=== PATIENT | male | born 2000 | race Caucasian/White ===

== ENCOUNTER 2024-11-07 08:19 | Outpatient (CLI) | payer BC, SELFPAY | END 2024-11-07 08:20 | disposition home or self-care (01) | LOC: AMB 11-22 11:59 | PROVIDERS: PCP Nurse Practitioner Psychiatric/Mental Health; Visit Provider Family Medicine | DX: F91.9 Conduct disorder, unspecified (principal); R00.0 Tachycardia, unspecified | CPT/HCPCS: A0425; A0427 ==

== ENCOUNTER 2024-11-07 08:43 | Emergency (ER) | payer BC, SELFPAY ==
--- OUTSIDE RECORDS SUMMARY | 2024-11-07 08:46 | XMS_ITS | Patient Health Record ---
Author Organization [facility] Address [address] [place] [address] [place] [address] Care Team Providers Care Candy Dipper Hand Name Role Phone RaquelDashawnen Unavailable [phone] Yadira Sykes Unavailable [phone] REASON FOR REFERRAL No Information MEDICATIONS Medication SIG (Take, Route, Frequency, Duration) Notes Start Date End Date Status Ciprofloxacin-dexAMETHason e 0.3-0.1 % 4 drops into affected ear Otic Twice a day for 7 days 07/06/2024 Active VITAL SIGNS Heart Rate 72 /min 07/06/2024 Temperature 98.3 degrees Fahrenheit 07/06/2024 Oximetry 99 % 07/06/2024 Blood pressure diastolic 78 mm Hg 07/06/2024 Height 5 ft 11 in in 07/06/2024 Blood pressure systolic 129 mm Hg 07/06/2024 Weight 150 lbs 07/06/2024 BMI 20.92 kg/m2 07/06/2024 Encounters Encounter Location Date Provider Diagnosis [facility] [address] [place] [address] 07/06/2024 Maryse García Acute otitis externa of right ear, unspecified type H60.501 [facility] [address] [place] [address] 07/09/2024 Yadira Sykes ASSESSMENTS Encounter Date Diagnosis Assessment Notes Treatment Notes Treatment Clinical Notes Section Notes 07/06/2024 Acute otitis externa of right ear, unspecified type (ICD-10 - H60.501) Take ear drops as prescribed. Continue ibuprofen prn for pain. Can use ice for pain relief. Keep ears clean and dry. RTC if SWOP or f/u with PCP ER precautions PLAN OF TREATMENT No Information Insurance Providers Payer Name Payer Address Payer Phone Subscriber Number Group Number Insured Name Patient Relationship to Insured Coverage Start Date Coverage End Date [facility] [address] [address] [place] [address] [id number] Harinder Bravo Self - patient is the insured MEDICAL (GENERAL) HISTORY Medical History History ICD Code Asthma Surgical History Surgery Date(Month/Year)
[2024-11-07 08:49] VITALS: BP 155/110; PULSE 110; RESP 20; TEMP 36.6; O2SAT 96
--- NOTE | 2024-11-07 09:15 | ED.PSYCH ---
HPI - Psych General Time Seen by Provider: 09:15 <Adriana Mayberry MD - Last Filed: 11/07/24 23:39> Date Seen: 11/07/24 <Adriana Mayberry MD - Last Filed: 11/07/24 23:39> Chief Complaint: Psychiatric Problem/Disorder <Adriana Mayberry MD - Last Filed: 11/07/24 23:39> Stated Complaint: Mental Health <Adriana Mayberry MD - Last Filed: 11/07/24 23:39> Time Seen by Provider: 11/07/24 09:14 <Adriana Mayberry MD - Last Filed: 11/07/24 23:39> Source: patient, RN notes reviewed and police <Adriana Mayberry MD - Last Filed: 11/07/24 23:39> Mode of arrival: ambulatory <Adriana Mayberry MD - Last Filed: 11/07/24 23:39> Limitations: no limitations <Adriana Mayberry MD - Last Filed: 11/07/24 23:39> History of Present Illness HPI Narrative: With this 24-year-old male with is brought in by PD with from home. His parents reportedly called the police. Does admit that he threatened them. He states he is held in a house where he has had PTSD, had a horrible childhood. He states every but he thought he had it so good. He will not elucidate exactly what he said was parents. He states he smokes pot in his parents had him for it. He does work, works at [employer]. There is hope that he might be able to get his own place. He has been hospitalized for mental health before, does not elaborate on this. He is on no medicines for anxiety, depression, PTSD. Nursing triage notes that he states ?I had a bad holiday? and ?my parents heat me and torture me?. He is denying pain at this time, denies suicidal ideation and when asked by nursing staff about homicidal ideation he states ?that's my curse, have evil thoughts about people?. He states he is feeling nauseated, has been overnight. He states he has had sweats overnight, smells his armpit, states he took a shower, thinks he might be sick. When I ask him if he has had contact ill people he states all the time. He states he is just waiting for us to let him go, he states he did come willingly with the police. He states that he would never act on his threats to his parents. I did discuss with him that he will need to talk to some specialists via telehealth and do further discussion about mental health. Discuss that we should consider testing for COVID with his illness and part of the process would be blood work. He states that he has legal rights in that he can refuse blood work. I did discuss with him that with threats of homicidal ideation, patients can lose those rights and we really need the evaluation. He stood up and far did at me, started cursing at me, telling me to get out of his room. He made comments insinuating that I thought it was better than everybody else, I was mad having to come to work, believe there was ?bitch doctor?. I did leave him without further discussion. He does tell me that he lied to me, isn't sick. Demands that I take off my mask. <Adriana Mayberry MD - Last Filed: 11/07/24 23:39> Related Data Allergies/Adverse Reactions: Allergies Allergy/AdvReac Type Severity Reaction Status Date / Time tree nut Allergy Unknown itching Verified 11/07/24 08:55 <Adriana Mayberry MD - Last Filed: 11/07/24 23:39> Review of Systems Status of ROS: Reports: 6 or more systems reviewed and unremarkable except as noted in History and below <Adriana Mayberry MD - Last Filed: 11/07/24 23:39> [facility] Social History: Social History Smoking Status: Never smoker How often do you have a drink containing alcohol: never How often do you have six or more drinks on one occasion: Never AUDIT-C Alcohol total score: 0 Non-prescribed substance use: marijuana (any form) service: No <Adriana Mayberry MD - Last Filed: 11/07/24 23:39> Exam Const: Vital Signs, click to edit/add: Vital Signs - 24 hr 11/07/24 08:49 11/07/24 19:50 11/07/24 20:12 Temperature 97.8 F 96.9 F L Pulse Rate [Pulse Oximeter] 110 H 135 H 103 H Respiratory Rate 20 18 Blood Pressure [Ri ght Upper Arm] 155/110 H 127/105 H 135/89 Pulse Oximetry 96 100 99 Oxygen Delivery Me thod Room Air Room Air Room Air 11/08/24 03:01 Temperature 97.6 F Pulse Rate [Pulse Oximeter] 81 Respiratory Rate 18 Blood Pressure [Ri ght Upper Arm] 134/68 Pulse Oximetry 99 Oxygen Delivery Me thod Room Air This 24-year-old male is alert, interactive, has his arms folded across his chest, slender frame. Sclerae are clear, conjugate gaze, of hurts his gaze from mine frequently, does not hold eye contact. Affect is somewhat flat, seems angry at the end of our interaction. Did allow me my physical exam before he became mad. Symmetrical facial function, lungs clear, no tachypnea, no wheezing or crackles. CV slightly fast but regular, no murmur. Abdomen is flat, soft, no rebound or guarding, no organomegaly. <Adriana Mayberry MD - Last Filed: 11/07/24 23:39> Vital Signs, click to edit/add: Vital Signs - 24 hr 11/07/24 08:49 11/07/24 19:50 11/07/24 20:12 Temperature 97.8 F 96.9 F L Pulse Rate [Pulse Oximeter] 110 H 135 H 103 H Respiratory Rate 20 18 Blood Pressure [Ri ght Upper Arm] 155/110 H 127/105 H 135/89 Pulse Oximetry 96 100 99 Oxygen Delivery Me thod Room Air Room Air Room Air 11/08/24 03:01 Temperature 97.6 F Pulse Rate [Pulse Oximeter] 81 Respiratory Rate 18 Blood Pressure [Ri ght Upper Arm] 134/68 Pulse Oximetry 99 Oxygen Delivery Me thod Room Air <Estefanía Ramsey MD - Last Filed: 11/09/24 19:53> Documenting provider has reviewed patient's vital signs: yes <Adriana Mayberry MD - Last Filed: 11/07/24 23:39> Course Course ED Course: Have talked to nursing staff, will see if he will do the telehealth evaluation. If they can talk him into doing blood work, urinalysis, triple viral swab then we will proceed but not force it at this point. I would like to have him do the telehealth baseline. I will attempt to talk to his mom. I am worried about this patient's mental status and need further information. <Adriana Mayberry MD - Last Filed: 11/07/24 23:39> Reevaluation(s) Time of Reevaluation #1: 09:35 <Adriana Mayberry MD - Last Filed: 11/07/24 23:39> Reevaluation #1: Have spoken with parents, dad is Smiley and mom is Pamela. 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 He did go through treatment. He did attend a depression and anxiety outpatient course this summer. Sees Justo Mota whom is a psychiatric nurse practitioner in [facility]. They questioned hypomanic behavior after he smoked a lot of marijuana between September and . They started noticing increased fall a till it he an anger building this weekend. He seemed more agitated, irritated and losing control. This morning he made comments such as ?if I would be you up but I have too much respect?. Dad was actually scared today that patient might lose control. They feel like his thoughts were racing, starting to think about negative things and that was rolling and continuing to perseverate over the negative thoughts. 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 They feel like he is going from dolores in the psychosis. Have discussed with them that he is not cooperative here, may need to do forced medication which they state they totally support. Have reviewed with them that we do not have direct hospitalization or psychiatric services but to employ a telehealth service. We will see if he will cooperate with that 1st. Did review with them that it may be difficult for placement given he has some threatening nature in his history here but we will see what we can do. <Adriana Mayberry MD - Last Filed: 11/07/24 23:39> Time of Reevaluation #2: 10:48 <Adriana Mayberry MD - Last Filed: 11/07/24 23:39> Reevaluation #2: Patient did take oral Zyprexa from male nursing staff, is agreeable to providing urine. He seems to do better with male staff at this point. We are trying to accommodate that make this process easier for him. Will work on getting blood work but will let the Zyprexa work for a while. Patient maintains his status here voluntary at this time but do find him holdable. <Adriana Mayberry MD - Last Filed: 11/07/24 23:39> Time of Reevaluation #3: 15:25 <Adriana Mayberry MD - Last Filed: 11/07/24 23:39> Reevaluation #3: This patient is medically clear. Has marijuana in his urine but otherwise no intoxicants. <Adriana Mayberry MD - Last Filed: 11/07/24 23:39> Additional Reevaluation(s): 9:30 p.m.: Patient is up, he is standing and flapping his arms around. He is in his room alone, not threatening anybody. We are going to see if he will take 10 mg oral Zyprexa just to ensure mental stability at this time. 11:37 p.m.: Patient is feeling some restless leg syndrome, feels like he has to keep moving. Almost feels like his muscles are cramping. I did hear him talking to the nurse about this, he had asked to speak to the nurse about some side effects of the medicine he was experiencing. He was very pleasant and appropriate. He states he has had this problem with Zyprexa in the past. We will order some p.r.n. Ativan as well as some p.r.n. Benadryl for nursing staff to work with for medicines to combat these symptoms. <Adriana Mayberry MD - Last Filed: 11/07/24 23:39> Consultations Consultation #1: Jalen performed the behavioral health assessment, patient did cooperate. He states he has thought about suicide since age 11. Patient had some insight and was aware that he was in a manic episode and he feels that severe. He did become agitated and irritated per Jalen during the assessment. He apologized after his outbursts. Jalen felt he was having delusions of grandeur, feeling smarter than everyone, having 2 face is. He did bring up that he has PTSD and is triggered by women. We are going to move to trying to have his interactions with minute this point. We will move him to a male nurse, security staff is male at this time. I will have my a male staff ED partner assist if needed in trying to talk him into taking oral Zyprexa, doing the laboratory workup. May need to consider emergent IM Zyprexa if there is escalation of behavior or refusal in plan of care. Jalen definitely supports inpatient care and will start looking, I feel patient absolutely necessitates inpatient care. Jalen did also state that the patient had not slept for while. <Adriana Mayberry MD - Last Filed: 11/07/24 23:39> Time: 10:03 <Adriana Mayberry MD - Last Filed: 11/07/24 23:39> Time: 06:31 <Estefanía Ramsey MD - Last Filed: 11/09/24 19:53> Consultation #3: Dr. Ramsey- I assumed care from evening provider. Patient initially was doing well to start my shift but has had more pacing and questioning type behavior, stating that he does not need mental health placement, he just needed sleep. The doctors do not know what is good for him, he will redness with a lawsuit, observed pacing in the room. He has ambulated to the bathroom several times and has not initiated conversation or altercation with me. He has not been combative towards staff. Her sink team and I both have concerns that he will escalate and become combative if we try to put him in the ambulance and transfer for planned inpatient mental health treatment at 7:30 a.m.. We discussed the case with our food safety coordinator. I recommended that we have please on standby. I did give several oral medication options that the nurse offered to the patient, all of which he declined. We want his transfer to go smoothly and therefore will plan to give IM B52 at 7:00 a.m., has transport is planned for 730. He will likely need to be restrained for this. Update:. Police presence was outside, patient was notified of this. He did take the oral Zyprexa willingly and did not require intervention for the IM medications. These remain ordered in case needed at time of transport. Unfortunately, our plan to transport him at 7:30 a.m. the part due to the fact that an ambulance call in or and off needed our truck. Most likely, we will have to wait until 10:00 a.m. until the 3rd tract comes on duty. Will continue to monitor and update as we are able. <Estefanía Ramsey MD - Last Filed: 11/09/24 19:53> Vital Signs Vital signs: Initial Vital Signs Temperature 97.8 F 11/07/24 08:49 Temperature Source Temporal Artery Scan 11/07/24 08:49 Pulse Rate 110 H 11/07/24 08:49 Respiratory Rate 20 11/07/24 08:49 Blood Pressure 155/110 H 11/07/24 08:49 Blood Pressure Mean 125 H 11/07/24 08:49 Pulse Oximetry 96 11/07/24 08:49 Oxygen Delivery Method Room Air 11/07/24 08:49 Vital Signs Temperature 97.8 F 11/07/24 08:49 Pulse Rate 110 H 11/07/24 08:49 Respiratory Rate 20 11/07/24 08:49 Blood Pressure 155/110 H 11/07/24 08:49 Pulse Oximetry 96 11/07/24 08:49 Oxygen Delivery Method Room Air 11/07/24 08:49 Temperature 97.6 F 11/08/24 03:01 Pulse Rate 81 11/08/24 03:01 Respiratory Rate 18 11/08/24 03:01 Blood Pressure 134/68 11/08/24 03:01 Pulse Oximetry 99 11/08/24 03:01 Oxygen Delivery Method Room Air 11/08/24 03:01 <Adriana Mayberry MD - Last Filed: 11/07/24 23:39> Initial Vital Signs Temperature 97.8 F 11/07/24 08:49 Temperature Source Temporal Artery Scan 11/07/24 08:49 Pulse Rate 110 H 11/07/24 08:49 Respiratory Rate 20 11/07/24 08:49 Blood Pressure 155/110 H 11/07/24 08:49 Blood Pressure Mean 125 H 11/07/24 08:49 Pulse Oximetry 96 11/07/24 08:49 Oxygen Delivery Method Room Air 11/07/24 08:49 Vital Signs Temperature 97.8 F 11/07/24 08:49 Pulse Rate 110 H 11/07/24 08:49 Respiratory Rate 20 11/07/24 08:49 Blood Pressure 155/110 H 11/07/24 08:49 Pulse Oximetry 96 11/07/24 08:49 Oxygen Delivery Method Room Air 11/07/24 08:49 Temperature 97.6 F 11/08/24 03:01 Pulse Rate 81 11/08/24 03:01 Respiratory Rate 18 11/08/24 03:01 Blood Pressure 134/68 11/08/24 03:01 Pulse Oximetry 99 11/08/24 03:01 Oxygen Delivery Method Room Air 11/08/24 03:01 <Estefanía Ramsey MD - Last Filed: 11/09/24 19:53> Medications Administered Medications: Discontinued Medications Generic Name Dose Route Start Last Admin Trade Name Freq PRN Reason Stop Dose Admin Calcium Carbonate 500 mg 11/08/24 03:18 11/08/24 03:20 Calcium Carbonate 500 Mg Chew PO 500 mg QID PRN Administration heartburn Diphenhydramine HCl 25 mg 11/07/24 23:38 11/07/24 23:46 Diphenhydramine 25 Mg Capsule PO 25 mg Q6H PRN Administration Agitation Nicotine Polacrilex 2 mg 11/07/24 23:26 11/07/24 23:46 Nicotine 2 Mg Gum BUCCAL 2 mg Q1H PRN Administration Olanzapine 10 mg 11/07/24 10:09 11/07/24 10:30 Olanzapine 5 Mg Tab.Rapdis PO 11/07/24 10:10 10 mg ONCE ONE Administration Olanzapine 10 mg 11/07/24 21:30 11/07/24 21:56 Olanzapine 5 Mg Tab.Rapdis PO 11/07/24 21:31 10 mg ONCE ONE Administration Olanzapine 10 mg 11/07/24 23:59 11/08/24 07:09 Olanzapine 5 Mg Tab.Rapdis PO 10 mg BID PRN Administration Agitation <Adriana Mayberry MD - Last Filed: 11/07/24 23:39> Discontinued Medications Generic Name Dose Route Start Last Admin Trade Name Freq PRN Reason Stop Dose Admin Calcium Carbonate 500 mg 11/08/24 03:18 11/08/24 03:20 Calcium Carbonate 500 Mg Chew PO 500 mg QID PRN Administration heartburn Diphenhydramine HCl 25 mg 11/07/24 23:38 11/07/24 23:46 Diphenhydramine 25 Mg Capsule PO 25 mg Q6H PRN Administration Agitation Nicotine Polacrilex 2 mg 11/07/24 23:26 11/07/24 23:46 Nicotine 2 Mg Gum BUCCAL 2 mg Q1H PRN Administration Olanzapine 10 mg 11/07/24 10:09 11/07/24 10:30 Olanzapine 5 Mg Tab.Rapdis PO 11/07/24 10:10 10 mg ONCE ONE Administration Olanzapine 10 mg 11/07/24 21:30 11/07/24 21:56 Olanzapine 5 Mg Tab.Rapdis PO 11/07/24 21:31 10 mg ONCE ONE Administration Olanzapine 10 mg 11/07/24 23:59 11/08/24 07:09 Olanzapine 5 Mg Tab.Rapdis PO 10 mg BID PRN Administration Agitation <Estefanía Ramsey MD - Last Filed: 11/09/24 19:53> MDM - Psych Lab Data Attestation: I reviewed the patient's lab results. <Adriana Mayberry MD - Last Filed: 11/07/24 23:39> Labs: Lab Results 11/07/24 11/07/24 11/07/24 Range/Units 11:01 13:00 14:22 WBC 10.20 (4.50-11.00) K/uL RBC 5.67 (4.30-5.90) m/uL Hgb 16.9 (13.5-17.5) gm/dL Hct 47.7 (37.0-53.0) % MCV 84 (80-100) fL MCH 30 (26-34) pg MCHC 35 (32-36) gm/dL RDW Coeff of Didier 11.5 (11.5-15.5) % Plt Count 342 (140-440) K/uL Neut % (Auto) 80.7 H (42.0-72.0) % Lymph % (Auto) 13.8 L (20-44) % [place] % (Auto) 4.9 (0.0-11.0) % Eos % (Auto) 0.1 (0.0-7.0) % Baso % (Auto) 0.2 (0.0-3.0) % Neut # (Auto) 8.20 H (1.7-7.0) K/uL Lymph # (Auto) 1.40 (0.90-2.90) K/uL [place] # (Auto) 0.50 (0.00-0.90) K/UL Eos # (Auto) 0.01 (0.00-0.50) K/uL Baso # (Auto) 0.02 (0.00-0.30) K/uL Abs Immat Gran (auto) 0.03 (0.00-0.30) K/uL Imm/Tot Granulo (auto) 0.3 % Sodium 139 (135-149) mmol/L Potassium 4.1 (3.6-5.1) mmol/L Chloride 102 (96-114) mmol/L Carbon Dioxide 19 L (20-32) mmol/L Anion Gap 18 H (7-15) mEq/L BUN 23 (5-24) mg/dL Creatinine 0.9 (0.5-1.5) mg/dL Estimated GFR 122 ml/min Glucose 93 (60-115) mg/dL Calcium 10.1 (8.4-10.6) mg/dL Total Bilirubin 1.5 (0.1-1.5) mg/dL AST 27 (12-35) U/L ALT 30 (4-50) U/L Alkaline Phosphatase 88 (40-150) U/L Total Protein 8.6 H (6.0-8.3) g/dL Albumin 5.5 H (3.3-5.0) g/dL TSH 0.658 (0.270-4.200) uIU/mL Salicylates < 1.0 L (1.0-10) mg/dL Urine Opiates Screen Negative (Negative) Ur Oxycodone Screen Negative (Negative) Urine Methadone Screen Negative (Negative) Acetaminophen < 10.0 L (10.0-30.0) ug/mL Ur Barbiturates Screen Negative (Negative) U Tricyclic Antidepress Negative (Negative) Ur Phencyclidine Scrn Negative (Negative) Ur Amphetamines Screen Negative (Negative) U Methamphetamines Scrn Negative (Negative) U Benzodiazepines Scrn Negative (Negative) Urine Cocaine Screen Negative (Negative) U Marijuana (THC) Screen POSITIVE A (Negative) Ur Drug Screen Comment See Note Ethyl Alcohol < 0.00 L (0.01-0.03) % SARS-CoV-2 (PCR) Negative SARS-CoV-2 (Negative) Influenza Type A (PCR) Negative PCR FLU A (Negative) Influenza Type B (PCR) Negative PCR FLU B (Negative) RSV (PCR) Negative PCR RSV (Negative) <Adriana Mayberry MD - Last Filed: 11/07/24 23:39> Lab Results 11/07/24 11/07/24 11/07/24 Range/Units 11:01 13:00 14:22 WBC 10.20 (4.50-11.00) K/uL RBC 5.67 (4.30-5.90) m/uL Hgb 16.9 (13.5-17.5) gm/dL Hct 47.7 (37.0-53.0) % MCV 84 (80-100) fL MCH 30 (26-34) pg MCHC 35 (32-36) gm/dL RDW Coeff of Didier 11.5 (11.5-15.5) % Plt Count 342 (140-440) K/uL Neut % (Auto) 80.7 H (42.0-72.0) % Lymph % (Auto) 13.8 L (20-44) % [place] % (Auto) 4.9 (0.0-11.0) % Eos % (Auto) 0.1 (0.0-7.0) % Baso % (Auto) 0.2 (0.0-3.0) % Neut # (Auto) 8.20 H (1.7-7.0) K/uL Lymph # (Auto) 1.40 (0.90-2.90) K/uL [place] # (Auto) 0.50 (0.00-0.90) K/UL Eos # (Auto) 0.01 (0.00-0.50) K/uL Baso # (Auto) 0.02 (0.00-0.30) K/uL Abs Immat Gran (auto) 0.03 (0.00-0.30) K/uL Imm/Tot Granulo (auto) 0.3 % Sodium 139 (135-149) mmol/L Potassium 4.1 (3.6-5.1) mmol/L Chloride 102 (96-114) mmol/L Carbon Dioxide 19 L (20-32) mmol/L Anion Gap 18 H (7-15) mEq/L BUN 23 (5-24) mg/dL Creatinine 0.9 (0.5-1.5) mg/dL Estimated GFR 122 ml/min Glucose 93 (60-115) mg/dL Calcium 10.1 (8.4-10.6) mg/dL Total Bilirubin 1.5 (0.1-1.5) mg/dL AST 27 (12-35) U/L ALT 30 (4-50) U/L Alkaline Phosphatase 88 (40-150) U/L Total Protein 8.6 H (6.0-8.3) g/dL Albumin 5.5 H (3.3-5.0) g/dL TSH 0.658 (0.270-4.200) uIU/mL Salicylates < 1.0 L (1.0-10) mg/dL Urine Opiates Screen Negative (Negative) Ur Oxycodone Screen Negative (Negative) Urine Methadone Screen Negative (Negative) Acetaminophen < 10.0 L (10.0-30.0) ug/mL Ur Barbiturates Screen Negative (Negative) U Tricyclic Antidepress Negative (Negative) Ur Phencyclidine Scrn Negative (Negative) Ur Amphetamines Screen Negative (Negative) U Methamphetamines Scrn Negative (Negative) U Benzodiazepines Scrn Negative (Negative) Urine Cocaine Screen Negative (Negative) U Marijuana (THC) Screen POSITIVE A (Negative) Ur Drug Screen Comment See Note Ethyl Alcohol < 0.00 L (0.01-0.03) % SARS-CoV-2 (PCR) Negative SARS-CoV-2 (Negative) Influenza Type A (PCR) Negative PCR FLU A (Negative) Influenza Type B (PCR) Negative PCR FLU B (Negative) RSV (PCR) Negative PCR RSV (Negative) <Estefanía Ramsey MD - Last Filed: 11/09/24 19:53> Discharge Plan Discharge Clinical Impression: Acute psychosis <Adriana Mayberry MD - Last Filed: 11/07/24 23:39> Patient Disposition: Xfer Psychiatric Hosp <Adriana Mayberry MD - Last Filed: 11/07/24 23:39> Stand Alone Forms: MyHealth Info Instructions <Adriana Mayberry MD - Last Filed: 11/07/24 23:39>
[2024-11-07] MEDS: OLANZapine 5 MG TAB.RAPDIS 10 MG PO ×2 (10:30→21:56)
[2024-11-07 11:06] LABS: Basophils Absolute Auto 0.02 K/uL (0.00-0.30); Basophils Percent Auto 0.2 % (0.0-3.0); Eosinophils Absolute Auto 0.01 K/uL (0.00-0.50); Eosinophils Percent Auto 0.1 % (0.0-7.0); Hematocrit 47.7 % (37.0-53.0); Hemoglobin* 16.9 gm/dL (13.5-17.5); Immature Granulocytes Abs Auto 0.03 K/uL (0.00-0.30); Immature Granulocytes Pct Auto 0.3 %; Lymphocytes Percent Auto 13.8 % (20-44); Mean Corpuscular HGB Conc 35 gm/dL (32-36); Mean Corpuscular Hemoglobin 30 pg (26-34); Mean Corpuscular Volume 84 fL (80-100); Monocytes Percent Auto 4.9 % (0.0-11.0); Neutrophils Percent Auto 80.7 % (42.0-72.0); Platelet Count* 342 K/uL (140-440); RDW Coefficient of Variation % 11.5 % (11.5-15.5); Red Blood Count 5.67 m/uL (4.30-5.90)
[2024-11-07 11:22] LABS: Slide Review Reflex No
[2024-11-07 11:25] LABS: Albumin* 5.5 g/dL (3.3-5.0); Chloride* 102 mmol/L (96-114); Sodium* 139 mmol/L (135-149)
[2024-11-07 11:26] LABS: Potassium* 4.1 mmol/L (3.6-5.1)
[2024-11-07 11:28] LABS: Alkaline Phosphatase* 88 U/L (40-150); Anion Gap 18 mEq/L (7-15); Aspartate Amino Transferase* 27 U/L (12-35); Bilirubin Total* 1.5 mg/dL (0.1-1.5); Blood Urea Nitrogen* 23 mg/dL (5-24); Carbon Dioxide* 19 mmol/L (20-32); Creatinine* 0.9 mg/dL (0.5-1.5); Estimated Glomerular Filt Rate 122 ml/min; Total Protein* 8.6 g/dL (6.0-8.3)
[2024-11-07 11:29] LABS: Alanine Aminotransferase* 30 U/L (4-50); Calcium* 10.1 mg/dL (8.4-10.6); Glucose* 93 mg/dL (60-115)
[2024-11-07 11:30] LABS: Acetaminophen* < 10.0 ug/mL (10.0-30.0); Salicylate* < 1.0 mg/dL (1.0-10)
[2024-11-07 11:41] LABS: Ethanol* < 0.00 % (0.01-0.03)
[2024-11-07 12:16] LABS: TSH With Reflex to FT4* 0.658 uIU/mL (0.270-4.200)
[2024-11-07 13:50] LABS: PCR FLU A Negative PCR FLU A (Negative); PCR FLU B Negative PCR FLU B (Negative); PCR RSV Negative PCR RSV (Negative); SARS PCR* Negative SARS-CoV-2 (Negative)
--- NOTE | 2024-11-07 14:08 | ED.NURSE ---
Security went in to see if patient able to void for urine sample. Patient able to give sample after prompting. Received warm blanket and back sleeping after sample. Was appropriate during interaction per sercurity.
[2024-11-07 14:41] LABS: Amphetamine Screen Urine Negative (Negative); Barbiturate Screen Urine Negative (Negative); Benzodiazepines Screen Urine Negative (Negative); Cannabinoid Screen Urine POSITIVE (Negative); Cocaine Screen Urine Negative (Negative); Methadone Screen Urine Negative (Negative); Methamphetamines Screen Urine Negative (Negative); Opiate Screen Urine Negative (Negative); Oxycodone Screen Urine Negative (Negative); Phencyclidine Screen Urine Negative (Negative); Tricyclic Antidepressant Urine Negative (Negative)
--- NOTE | 2024-11-07 15:15 | ED.NURSE ---
[facility] and [facility] are going to review patient. Facesheet, labs, ER/provider notes and medical clearance will be faxed to both locations. [facility]: [phone] [facility]: [phone]
[2024-11-07 19:50] VITALS: BP 127/105; PULSE 135; RESP 18; TEMP 36.1; O2SAT 100
[2024-11-07 20:12] VITALS: BP 135/89; PULSE 103; O2SAT 99
--- NOTE | 2024-11-07 20:13 | ED.NURSE ---
Patient alert and awake. Talkative with nurse and appropraite. Patient having some shakes- given socks, a sweatshirt and a warm blanket. Patient called nurse in the room stating face felt flushed and fingers were tingling. Sensations passed with talking with nurse. Vitally stable and denies any medications at this time.
[2024-11-07] MEDS: NICOTINE 2 MG GUM BUCCAL (23:46)
[2024-11-07] MEDS: diphenhydrAMINE 25 MG CAPSULE PO (23:46)
[2024-11-08 03:01] VITALS: BP 134/68; PULSE 81; RESP 18; TEMP 36.4; O2SAT 99
[2024-11-08] MEDS: CALCIUM CARBONATE 500 MG CHEW PO (03:20)
[2024-11-08] MEDS: OLANZapine 5 MG TAB.RAPDIS 10 MG PO (07:09)
== END 2024-11-08 09:18 ==
PROVIDERS: Family Medicine; Emergency Provider Family Medicine; PCP Nurse Practitioner Psychiatric/Mental Health
DX: F23 Brief psychotic disorder (principal)
CPT/HCPCS: 36415; 80053; 80143; 80179; 80306; 82077; 84443; 85025; 87631; 96372; 99284; 99285; Q3014; A9270

== ENCOUNTER 2024-11-08 09:09 | Outpatient (CLI) | payer BC, SELFPAY | END 2024-11-08 09:10 | disposition home or self-care (01) | LOC: AMB 12-11 16:15 | PROVIDERS: PCP Nurse Practitioner Psychiatric/Mental Health; Visit Provider Family Medicine | DX: F23 Brief psychotic disorder (principal) | CPT/HCPCS: A0425; A0427 ==

== ENCOUNTER 2024-11-29 13:39 | Outpatient (CLI) | payer BC, SELFPAY | END 2024-11-29 13:40 | disposition home or self-care (01) | LOC: AMB 12-10 18:02 | PROVIDERS: PCP Nurse Practitioner Psychiatric/Mental Health; Visit Provider Family Medicine | DX: T50.991A Poisoning by other drugs, medicaments and biological substances, accidental (unintentional), initial encounter (principal); R41.82 Altered mental status, unspecified; Y92.009 Unspecified place in unspecified non-institutional (private) residence as the place of occurrence of the external cause | CPT/HCPCS: A0425; A0427 ==